=== PATIENT | male | born 1960 | race Caucasian/White ===

== ENCOUNTER 2024-01-06 04:48 | Inpatient (IN) | payer OTHER, SELFPAY ==
[2023-12-31 08:28] VITALS: BMI 32.3
[2023-12-31 09:38] LABS: % Basophils 0.8 % (0-2); % Eosinophils 8.9 % (0-6); % Immature Granulocytes 0.4 % (0-0.5); % Lymphocytes 26.1 % (20.5-51.1); % Monocytes 5.9 % (1.7-9.3); % Neutrophils 57.9 % (42.2-75.2); Absolute Basophils 0.1 10^3/uL (0-0.2); Absolute Eosinophils 0.7 10^3/uL (0-0.7); Absolute Lymphocytes 1.9 10^3/uL (1.2-3.4); Absolute Monocytes 0.4 10^3/uL (0.1-0.6); Absolute Neutrophils 4.2 10^3/uL (1.4-6.5); Hematocrit 43.7 % (39.0-52.0); Hemoglobin 14.9 g/dL (13.0-18.0); Mean Corp Hgb Conc. 34.1 g/dL (33.0-37.0); Mean Corpuscular Hgb 31.4 pg (27.0-31.0); Mean Corpuscular Volume 92.2 fL (80.0-94.0); Mean Platelet Volume 10.2 fL (7.4-10.4); Nucleated Red Blood Cells % 0 % (-); Platelet Count 224 10^3/uL (130-400); Red Blood Cell Count 4.74 10^6/uL (4.70-6.10); Red Cell Dist. Width 12.7 % (11.5-14.5); White Blood Cell Count 7.3 10^3/uL (4.8-10.8)
[2023-12-31 09:48] LABS: INR 1.09; PT 13.9 Sec (11.4-14.6)
[2023-12-31 09:48] LABS: Urine Albumin Negative (Neg - Trace); Urine Bilirubin Negative (Negative); Urine Character Clear (Clear); Urine Color Yellow; Urine Glucose Negative (Negative); Urine Ketone Negative (Negative); Urine Leukocyte Negative (Negative); Urine Nitrite Negative (Negative); Urine Occult Blood Negative (Negative); Urine Urobilinogen Negative (Neg - 1+)
[2023-12-31 09:49] LABS: APTT 29.8 Sec (23.4-35.0)
[2023-12-31 10:13] LABS: ALT (SGPT) 33 U/L (0-50); AST (SGOT) 33 U/L (17-59); Albumin 4.9 g/dl (3.5-5.0); Alkaline Phosphatase 101 U/L (38-126); Blood Urea Nitrogen 19 mg/dl (9-20); Calcium 10.5 mg/dl (8.4-10.2); Carbon Dioxide 30 mmol/L (22-30); Chloride 104 mmol/L (98-107); Direct Bilirubin 0.3 mg/dl (0.0-0.4); Estimated Creatinine Clearance 80 ml/min; Glucose 91 mg/dl (70-99); Potassium 4.9 mmol/L (3.5-5.1); Sodium 140 mmol/L (135-145); Total Bilirubin 1.4 mg/dl (0.2-1.3); Total Protein 7.6 g/dl (6.3-8.2); eGFR > 60.00
--- NOTE | 2023-12-31 10:20 | CM ---
Chart reviewed. 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 Patients 's cousin and lives up
stairs. You can also access the basement through the house with 9-10 CAMERON. Reviewed preoperative and postoperative instructions and restrictions, along with showering guidelines. Gave patient 2 soaps. Patient is agreeable to a home visit by CT
Transitional RN. Plan is for the patient to return home with CT Transitional RN.
[2023-12-31 11:02] LABS: Glycohemoglobin (HgbA1c) 5.4 % (4.0-5.6)
[2024-01-06] VITALS (21 sets, daily range): BP systolic 76–137; BP diastolic 50–98; BMI 31.9
--- NOTE | 2024-01-06 00:12 | W.PN.CT ---
Assessment / Plan
-
Assessment:
-S/P Standard sternotomy with mid arch cannulation using Seldinger technique and right atrial cannulation/Ascending aortic and hemiarch aorta replacement/Resuspension of the [place] aortic valve at the level of the commissures with debridement of
[place] aortic valve Lambl bodies/ Rigid sternal fixation using 3 plates and sternal wires, by Dr. Box on 01/06/24, pod#1
-Ascending Aorta Aneurysm (5.3 cm)
-Bicuspid aortic valve morphology, Seivers type I, left right fusion
-LVEF 60-65% per intraop AMADEO
-Chest pain
-L heart Cath showed negative CAD
-Sinus bradycardia
-HTN
-Hyperlipidemia
-Class 1 obesity (BMI 32.3)
-Bipolar disorder
-Anxiety/Depression
-Active tobacco use (< 1ppd x 30+ years)
-Renal calculi
-Sciatica
-MRSA + (nasal swab from 12/31/23)
-Hx fall from ladder with rib and left femur fx
-S/P ORIF with traction and prolonged casting, 1976
-Acute postop atelectasis
-Acute postop hypovolemia with subsequent hypervolemia
Plan:
-No major issues overnight. Hemodynamically and neurologically intact
-Successfully extubated on 01/06/24 @ 1515
-Weaned off of Levophed gtt overnight, remains on insulin gtt per protocol
-Will place Amiodarone and Lopressor on hold for now given soft BP overnight and sinus bradycardia
-Last CI, MVO2, U/O mL since OR
-Cont. current meds (ASA, Lipitor, held Amiodarone last night d/t bradycardia )
-Monitor chest tube output: 2meds , R/L pleurals
-D/C'd radha and a-line @ 0500
-D/C'd sea @ 0600
-Telemetry phase today once off insulin gtt per protocol
-Maintain cordis
-Maintain temporary PW (will pull in 1-2 days)
-Wean off of O2 as tolerated
-Encourage use of IS
-Cont. to encourage smoking cessation
-OOB into chair/Ambulate
Subjective
-
Date of Service: January 06, 2024
Objective Data
-
Lab Results
12/31/23 08:38
12/31/23 08:38
PT 13.9 Sec (11.4-14.6) 12/31/23 08:38
INR 1.09 12/31/23 08:38
APTT 29.8 Sec (23.4-35.0) 12/31/23 08:38
[2024-01-06] MEDS: BACTROBAN 2% OINTMENT 1 APPLIC NASAL ×2 (05:39→20:18)
[2024-01-06] MEDS: PROTONIX 40 MG PO (05:41)
[2024-01-06] MEDS: MAGNESIUM OXIDE 500 MG PO (05:41)
[2024-01-06] MEDS: LOPRESSOR 25 MG PO (05:41)
--- NOTE | 2024-01-06 06:15 | W.CVOR.SURPR ---
[facility] Surgeon Immed Pre Op
-
I have examined this patient prior to performance of the scheduled procedure.
The patient's condition is unchanged from the time of the dictated/written History and
Physical and the patient is able to undergo the scheduled procedure.
Ascending aorta replacement with hemiarch replacement
--- NOTE | 2024-01-06 06:20 | PTCARENOTE ---
Patient arrived to room 2263 with security system technician without difficulty. Patient A+A+Ox3. No neurological deficits noted. No c/o pain or discomfort. Patient confirmed taking 4% Chlorhexidine shower last night and this morning. Patient confirmed
NPO status after midnight. Patient clipped and prepped per protocol. Admission questions and medication reconciliation completed. Pre-Op medications administered. I.S. >3,000. Dr. Box arrived to talk with patient. callisthenics instructor to CV[facility].
[2024-01-06 07:18] LABS: ACT+ - POC 93 Seconds (82-134)
[2024-01-06 07:44] LABS: B.E. - POC -0.3 mmol/L; Glucose - POC 92 mg/dl (65-99); HCO3 - POC 26 mmol/L (21-29); Hematocrit - POC 38 % PCV (42-52); Hemodilution- POC Yes; Hemoglobin Calculated - POC 12.8; PCO2 - POC 46 mmHg (35-45); PO2 - POC 443 mmHg (80-100); POC Comment PRE; Potassium - POC 4.3 mmol/L (3.6-5.0); Sodium - POC 143 mmol/L (135-145); pH - POC 7.36 (7.35-7.45)
[2024-01-06 08:01] LABS: Urine Albumin Negative (Neg - Trace); Urine Bilirubin Negative (Negative); Urine Character Clear (Clear); Urine Color Yellow; Urine Glucose Negative (Negative); Urine Ketone Negative (Negative); Urine Leukocyte Negative (Negative); Urine Nitrite Negative (Negative); Urine Occult Blood Negative (Negative); Urine Urobilinogen Negative (Neg - 1+)
[2024-01-06 08:50] LABS: ACT+ - POC 608 Seconds (82-134)
--- NOTE | 2024-01-06 09:19 | CM ---
Addendum entered by JAYA Soliz 01/06/24 15:42:
Addl info. from initial assessment to clarify below:
Patient lives in a finished basement apartment of a 2 STH with his , full bathroom as well with 1 CAMERON from the outside, 0 DME. Patients 's cousin and lives up stairs. You can also access the basement through the house with 9-10 CAMERON.
Original Note:
Patient in OR today for planned AVR.
Reviewed pre-admission assessment. Pt. resides with spouse in a 1 bedroom apt. Functionally, patient is quite indep. w/ ADLS, mobility without use of any assisted device.
Anticipated DC plan is for home w/ CT Transitional Care RN.
CM to follow.
[2024-01-06 09:42] LABS: B.E. - POC 1.4 mmol/L; Glucose - POC 139 mg/dl (65-99); HCO3 - POC 27 mmol/L (21-29); Hematocrit - POC 31 % PCV (42-52); Hemodilution- POC Yes; Hemoglobin Calculated - POC 10.5; Ionized Calcium - POC 1.18 mmol/L (1.12-1.27); PCO2 - POC 47 mmHg (35-45); PO2 - POC 396 mmHg (80-100); POC Comment CPB; Potassium - POC 5.6 mmol/L (3.6-5.0); Sodium - POC 141 mmol/L (135-145); pH - POC 7.37 (7.35-7.45)
[2024-01-06 09:46] LABS: ACT+ - POC 540 Seconds (82-134)
[2024-01-06 10:18] LABS: B.E. - POC 0.1 mmol/L; Glucose - POC 189 mg/dl (65-99); HCO3 - POC 25 mmol/L (21-29); Hematocrit - POC 34 % PCV (42-52); Hemodilution- POC Yes; Hemoglobin Calculated - POC 11.4; Ionized Calcium - POC 1.16 mmol/L (1.12-1.27); O2 Saturation %Calculated-POC 99.8 5 (92-96); PCO2 - POC 38 mmHg (35-45); PO2 - POC 229 mmHg (80-100); POC Comment CPB; Potassium - POC 5.9 mmol/L (3.6-5.0); Sodium - POC 138 mmol/L (135-145); pH - POC 7.41 (7.35-7.45)
[2024-01-06 10:19] LABS: ACT+ - POC 486 Seconds (82-134)
[2024-01-06 10:35] LABS: ACT+ - POC 476 Seconds (82-134)
[2024-01-06 10:35] LABS: B.E. - POC 2.6 mmol/L; Glucose - POC 185 mg/dl (65-99); HCO3 - POC 27 mmol/L (21-29); Hematocrit - POC 34 % PCV (42-52); Hemodilution- POC Yes; Hemoglobin Calculated - POC 11.7; Ionized Calcium - POC 1.14 mmol/L (1.12-1.27); O2 Saturation %Calculated-POC 99.9 5 (92-96); PCO2 - POC 39 mmHg (35-45); PO2 - POC 337 mmHg (80-100); POC Comment WARM; Potassium - POC 5.5 mmol/L (3.6-5.0); Sodium - POC 139 mmol/L (135-145); pH - POC 7.45 (7.35-7.45)
[2024-01-06 11:05] LABS: ACT+ - POC 96 Seconds (82-134)
[2024-01-06 11:05] LABS: B.E. - POC -1.3 mmol/L; Glucose - POC 130 mg/dl (65-99); HCO3 - POC 25 mmol/L (21-29); Hematocrit - POC 34 % PCV (42-52); Hemodilution- POC Yes; Hemoglobin Calculated - POC 11.7; Ionized Calcium - POC 1.42 mmol/L (1.12-1.27); O2 Saturation %Calculated-POC 99.8 5 (92-96); PCO2 - POC 46 mmHg (35-45); PO2 - POC 242 mmHg (80-100); POC Comment POST; Sodium - POC 143 mmol/L (135-145); pH - POC 7.34 (7.35-7.45)
[2024-01-06] MEDS: NEURONTIN PO (11:35)
[2024-01-06] MEDS: LIPITOR PO (11:35)
--- NOTE | 2024-01-06 12:00 | PTCARENOTE ---
Received patient from [facility] at 1200. Pt intubated and sedated on precedex gtt at 0.7mcg/kg/hr. PERRLA 3mm brisk. Unresponsive. POX 98% on SIMV 60% 12 600 5/5. Occasionally breathing over the vent. Lungs clear anteriorly. Mediastinal chest tubes x2
y-sited to 1 atrium to -20cm suction draining red fluid. Right pleural chest tube to -20cm suction draining red fluid. No air leaks, tidaling, crepitus noted. Sinus jose de jesus with 1st degree AVB with sinus arrhythmia with rates in the 50s-60s. BP
supported with 2mcg/min levophed. Heart tones audible. CI 1.86, CT JEWEL BEARING TURNER notified and MVO2 drawn. PA pressures 20s/10s. CVP 12. Bilateral radial and DP pulses palpable. No edema noted. Epicardial v-wire set to back up 40/8/2. No pacing noted after
thresholds completed. Abdomen soft, round, nontender. Hypoactive BS. Edwards catheter intact draining adequate amounts of clear yellow urine. Right and left radial alines intact with appropriate waveforms. Right IJ cordis and swan floated to 49cm. All
lines flushed, leveled, and zeroed with appropriate waveforms. Left AC 18g PIV intact infusing insulin gtt per Critical Care Glycemic protocol. NSS KVO x2 infusing. See MAR for medication administration. See worklist for complete nursing assessment.
Post-op EKG, labs, and CXR completed.
--- NOTE | 2024-01-06 12:05 | W.PN.CT.SURG ---
CT Surgery Operative Note
-
CARDIAC SURGERY OPERATIVE REPORT
Preoperative Diagnosis: Ascending aortic aneurysm with history of bicuspid aortic valve morphology and recurrent chest pain
Postoperative Diagnosis: Same
Procedure(s) Performed:
1. Standard sternotomy with mid arch cannulation using Seldinger technique and right atrial cannulation
2. Ascending aortic and hemiarch aorta replacement
3. Resuspension of the [place] aortic valve at the level of the commissures with debridement of [place] aortic valve Lambl bodies
4. Placement of temporary ventricular pacing wire
5. Transesophageal echocardiography
6. Rigid sternal fixation using 3 plates and sternal wires
Date of Surgery: 01/06/2024
Comorbidities:
1. Known ascending aortic aneurysm without rupture, crescendo chest pain without coronary artery disease
2. Hypertension
3. Hyperlipidemia
4. History of bipolar disorder, depression and anxiety
5. Active smoker, tobacco abuse
6. Nephrolithiasis
7. Bicuspid aortic valve morphology, Seivers type I, left right fusion
Attending Surgeon: Barber Box MD, MS
Assistants: Janki Quintero PA-C (present and necessary to first officer, retraction, suction, exposure, suture management, and wound closure under my direction)
Anesthesiology: Chandu Romero MD and Roberta Boone CRNA
Scrub and Circulating RNs: Wanda Prasad RN, Moinka Cohen RN
Cellar Packer: Janki Crawford CCP
Anesthesia: GETA
EBL: per perfusion records
Products: None, gave back 500cc Cell Saver Blood Recovered from the field
CPB Time: 98 minutes
Aortic Cross Clamp Time: 72 minutes
Indication(s) for Procedures: This is a 63-year-old male who is well-known to me. I been following him for almost a year and a half due to a known ascending aortic aneurysm measuring 5.3 cm. He also has known bicuspid aortic valve morphology.
Initially had no family history and had some hypertension which was better controlled. He is also an active smoker which I counseled him multiple times to stop smoking. He is currently down to 3 cigarettes a day from initially 17/day. In the last
6 months, he is presented to the ED on multiple occasions with unexplained central and back chest pain. He had multiple CT angiograms demonstrating a stable ascending aortic aneurysm with no dissection. However given his crescendo symptoms, I felt
it was prudent to proceed with aortic intervention given his bicuspid valve morphology. He was counseled on the risk of surgery, he accepted those risks, and so we proceeded.
Aortic Valve Description: Bicuspid valve morphology with left and right coronary cusp fusion, slightly thickened at the free margin with some Lambl bodies on the ventricular aspect otherwise was normally functioning with a mean gradient of 9 and
trace central aortic valve insufficiency. I opted to leave this valve in place given that a bioprosthetic valve was given the same approximately gradient and may not give him the same durability/longevity. The left and right coronary ostia within
normal anatomic positions. He had a [place] type I morphology with a 180/180/180 distribution of the commissures.
Findings: Left ventricular ejection fraction preoperatively was normal with no regional wall motion abnormalities. Following surgery his EF remained the same at 60% with no new regional wall motion abnormalities. He had a bicuspid aortic valve
with left right fusion, [place] 1 morphology. There was some thickening along the free margin of the leaflet however due to its normal function and very mild mean gradient of 9 mmHg, I opted to leave the valve alone. There was some Lambl bodies on
the ventricular aspect of the valve which I resected using scissors. The ascending aorta and arch were circumferentially dissected. I was able to isolate the innominate artery as well as cannulate at the mid arch using Seldinger technique under
echo guidance. This allowed me to place my clamp across the base the innominate artery. 3 pairs of pledgeted sutures were placed along the commissures of the [place] aortic valve leaflets. The graft was then inverted inside of the heart and a
single 4-0 Prolene was used to perform the proximal anastomosis using bovine pericardium as a gasket and absorbable PrevaLeak to seal any needle holes. The graft was then pulled back out and the rest of the ascending aorta was resected accordingly
beveling toward the less curve aiming for the ligamentum arteriosum remnant. The graft was beveled to the lesser curvature as well. The graft was beveled according and the distal anastomosis was performed using 4-0 Prolene in a running fashion
using again, bovine pericardium, as a gasket on the external surface. A single repair stitch was placed along the 5 o'clock position of the distal anastomosis. There was otherwise good hemostasis and normal function of his [place] aortic valve.
Given his line of work and activity, I opted to perform rigid sternal fixation using 3 additional plates to reinforce the wires. No inotropes were required in the case, no blood products other than 500 cc of scavenged blood wash to the Cell Saver,
was given back to the patient. He was in sinus rhythm and did not require any ventricular pacing. His [place] aortic valve remained with only trace central insufficiency.
Specimen(s): Ascending aortic aneurysm.
Prosthesis:
1. 32 mm Hemashield [place] graft
2. Bovine pericardium, serial number [id number]
3. 3 box plates, 2 silver and 1 gold (4 x 18 mm screws, 4 x 20 mm screws, 4 x 16 mm screws)
Description of Procedure: The patient was taken to the operating room. Their identity and procedure to be performed were verified and they were positioned supine on the operating table. Induction via general anesthesia with endotracheal intubation
was performed and central venous access and arterial monitoring were inserted. A preoperative transesophageal echocardiogram was performed to assess cardiac function and valvular function. The patient was then prepped and draped from chin to feet in
a sterile fashion. A preoperative time-out was performed with all members of the team present. A midline chest incision was performed along with median sternotomy. The innominate vein was isolated and encircled with a vessel loop for retraction.
The left innominate artery was then identified and circumferentially dissected placing a vessel loop and the events narrowing would be required. I then opened the pericardium and full heparinization was given (a total of 55,000 units). We created a
pericardial well. The pericardial reflection off the ascending aorta was then taken down. The ascending aorta was then gently retracted towards the feet and additional dissection along the arch was performed. At this point were able to identify
the left common carotid as well as the left subclavian. I opted to perform mid arch cannulation using Seldinger technique in order to provide room for the aortic cross-clamp. The aortic cannulation site was chosen where it was soft, pliable, and
free of calcium. Cannulation was performed with an arterial cannula under echo guidance using Seldinger technique after performing serial dilations. A triple-stage venous cannula through the right atrial appendage. The arterial cannula line had an
appropriate bounce and correlating pressures with test dosing. The pulmonary artery was away from the aorta to facilitate a clamp site and aortotomy. The ACT was confirmed to be over 400 and retrograde autologous priming was performed
before commencing cardiopulmonary bypass. A left ventricular vent was placed at the right superior pulmonary vein and secured. While pulling down on the ascending aorta exposing the arch, the aortic cross-clamp was placed across the base of the
innominate artery after decreasing the flow on the bypass and mean arterial pressure. I was satisfied that we clamped high enough in order to resect the abnormal aorta up to the level where the necked down a 12-gauge Angiocath was then inserted
into the ascending aorta and A total of 1.2L initial dose of antegrade [place] cardioplegia solution was given and planned for re-dosing every 75 minutes as necessary. There was rapid electro-mechanical arrest of the heart at 300 cc of
cardioplegia. The left ventricle was observed for distention on echocardiogram and manual palpation. Cold slush was placed into a sponge and topically on the RV while we systemically cooled to 34 degrees centigrade.
Carbon dioxide was used to flood the field. An aortotomy was performed and the distal ascending aorta was tucked away. The location of both left and right coronary vessels were visualized in the root. The aorta was fully transected at the level of
the STJ. I then continued to cut down further toward the commissures of the leaflets. Lambl bodies were resected from the ventricular aspect. I placed 4-0 pledgeted Prolene sutures at the level of the commissures and both the internal and external
aspects of the root. This was used to resuspend the aortic valve. Using a freestyle sizer, I sized the [place] root to approximately 32 mm. A 32 mm Hemashield graft was then selected and transected according to length. I then inverted the graft
and placed it inside of the LVOT/left ventricle. Using the pledgeted Prolene sutures already placed at the commissures, I circumferentially sewed a single suture line using bovine pericardium as a gasket on the external surface. Additional
absorbable sealant was then placed along the external surface after everting the graft. The ascending aorta was then resected leaving approximately 1.5 cm from the cross-clamp where the [place] aorta neck down to approximately 3.5cm. The graft was
beveled accordingly and the distal anastomosis was performed with a running 4-0 Prolene in a single layer using bovine pericardium as a gasket.
De-airing maneuvers were performed and temporary bipolar ventricular pacing wires were placed on the base of the right ventricle and temporary atrial pacing wires at the SVC/Atrial junction. Eye cautery was used to perform a small hole in the graft
at 12-gauge Angiocath was then replaced into the graft for de-airing after being hooked up to the root vent. The patient was placed in a Trendelenburg position and flows on bypass were lowered. The aortic cross clamp was removed and flows were
slowly brought back up. The suture lines appeared hemostatic. Transesophageal echocardiography revealed no AI and appropriate prosthetic function. Once de-airing was satisfactory, the left ventricular vent was removed. After verifying acceptable
parameters, we initiated weaning from cardiopulmonary bypass. Once we were off cardiopulmonary bypass, the venous cannula was clamped and removed. A test dose of protamine was administered and the patient was monitored for any adverse reaction
before resuming protamine. Once half of the protamine dose was delivered, pump suckers were turned off and the systolic blood pressure was lowered for aortic decannulation. The aortic cannula was removed and pursestrings were tied down. All
cannulation sites were oversewn with a 4-0 prolene. The suture lines were inspected and hemostasis was confirmed. Mediastinal hemostasis was obtained. Two 24Fr Forrest drains were placed within the pericardium with a single 19 [place] drain to
the right hemithorax. The sternum was approximated with four #7 and three #8 double stainless steel wires. Additional sternal plates were placed to reinforce the manubrium, body, and lower sternum. Fascia was approximated with #1 vicryl suture. The
subcutaneous, dermis and epidermis were closed in layers in a running fashion. The skin wound was cleansed and dressed.
All instrument, sponge, and needle counts were confirmed to be correct x 2 at the end of the operation. The patient was transferred to the cardiac intensive care unit in critical but stable condition.
I, Dr. Barber Box, was present, scrubbed for, and performed all critical elements of this procedure.
Barber Box MD, MS
Cardiothoracic Surgeon
[facility]
This dictation was created using the [employer]ote dictation system. Please excuse any grammatical, typographical, or 'sound alike' errors
[2024-01-06 12:16] LABS: Glucose - Point of Care 140 mg/dl (70-99)
[2024-01-06 12:25] LABS: B.E. -1.6 mmol/L; HCO3 25.6 mmol/L (21-28); Ionized Calcium 1.27 mMOL/L (1.15-1.33); O2 Saturation % 99.6 % (94-98); O2 Therapy VENT; PCO2 52 mmHg (35-48); PO2 162 mmHg (83-108); Potassium 3.8 mMOL/L (3.5-5.1); Sodium 138 mMOL/L (136-145)
[2024-01-06 12:27] LABS: Hematocrit 40.2 % (39.0-52.0); Hemoglobin 13.6 g/dL (13.0-18.0); Platelet Count 162 10^3/uL (130-400)
[2024-01-06 12:28] LABS: Mixed Venous O2 Saturation 79.7 %
--- NOTE | 2024-01-06 12:35 | PTCARENOTE ---
Per CT ETL ANALYST, advance ETT 2cm and change vent settings to 16 RR. RT called to bedside, ETT advanced from 22cm to 24cm and vent changes made. During repeat CXR, pt woke up, was able to follow commands appropriately and wiggle toes and squeeze hands.
[2024-01-06 12:36] LABS: INR 1.38
[2024-01-06 12:39] LABS: Blood Urea Nitrogen 18 mg/dl (9-20); Estimated Creatinine Clearance 87 ml/min; Glucose 136 mg/dl (70-99); Magnesium 2.5 mg/dl (1.6-2.3)
[2024-01-06] MEDS: KCL 50 IV ×2 (12:41→13:58)
[2024-01-06] MEDS: ANCEF 10 IV ×2 (12:43)
[2024-01-06] MEDS: NSS 500 IV (12:43)
[2024-01-06] MEDS: DILAUDID 0.5 MG IV (12:48)
--- NOTE | 2024-01-06 12:51 | CON.CAR ---
Addendum entered and electronically signed by Edy Alatorre MD 01/06/24 15:05:
Total visit time 20 minutes
Addendum entered and electronically signed by Edy Alatorre MD 01/06/24 14:32:
I saw and examined the patient.
The GAS LEAK TESTER or PA's note was reviewed and I agree with the note.
Comment: General: Sedate
Neck: Supple, no JVD, HJR, carotids +2 B/L, no bruits bilaterally.
Heart: Non displaced PMI, RRR, no murmurs, No S3, S4, no rubs.
Lungs: Scattered rhonchi
Sternal dressings noted
Extremities: No clubbing, cyanosis or edema bilaterally.
Neuro: Sedate
Jeffrey has a history of bicuspid aortic valve with mild aortic stenosis and ascending thoracic aneurysm as well as tobacco abuse and hyperlipidemia. He is seen status post #32 hemiarch ascending aortic root replacement with resuspension of aortic
valve. He is sedate at present and on low-dose Levophed. Remains in sinus rhythm. Discussed with nursing.
Original Note:
Consultation
Consultation Request
Date/Time Consultation Requested: 01/06/2024
Date/Time Consultation Performed: 01/06/2024
Requesting Provider: Dr. Box
Performing Provider: Ying Dorsey PA-C for Edy Alatorre
Reason for Consultation: s/p hemiarch ascending replacement w/ resuspension of the AV, post op care
Medical History
-
History of Present Illness:
Patient is a 63-year-old male with past medical history of ascending aortic aneurysm measuring 5.3 cm and bicuspid aortic valve, hyperlipidemia, chronic back pain, kidney stones, tobacco abuse who had been admitted to outside hospital on multiple
occasions with unexplained chest and back pain. Multiple CT angiograms demonstrated stable ascending aortic aneurysm without dissection.. Echocardiogram showed preserved ejection fraction with bicuspid aortic valve with mild aortic stenosis. He
underwent cardiac catheterization in November 2023 which demonstrated no significant coronary artery disease He was seen by cardiothoracic surgery as outpatient and felt to be suitable candidate for ascending aorta replacement with resuspension of
aortic valve. Patient was electively admitted 01/06/2024 and underwent number #32 hemiarch ascending aorta replacement with resuspension of aortic valve and rigid sternal fixation using 3 plates and sternal wires by Dr. Box. Cardiology being asked
to see patient for postop care.
PMH:
Aneurysm dilation Thoracic Aorta
Tobacco abuse/smoker, 30+years, < 1PPD
Mechanical fall off ladder, nondisplaced rib fractures and traumatic fx L femur requiring ORIF
Hyperlipidemia
Chronic low back pain, sciatica
Nephrolithiasis�����
Depression/anxiety
Past Medical History
Past Medical History: Other (See HPI)
Past Surgical History: Orthopedic (traumatic fx L femur requiring ORIF)
Social History
Tobacco: Smoker
Alcohol: Occasional
Drug: None
Personal:
Living: With Family
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
Family History
Family History: Cancer and Other (Mother CVA, Father colon ca, ESRD-HD)
Allergies / Home Medications
Allergy/AdvReac Type Severity Reaction Status Date / Time
codeine Allergy GI Verified 12/24/23 10:58
cyclobenzaprine Allergy Nausea / Verified 01/06/24 03:26
[From Flexeril] Vomiting
�Medication �Instructions �Recorded �Confirmed �Type
acetaminophen 500 mg capsule 500 - 1,000 mg PO Q6H PRN pain 12/24/23 01/06/24 History
atorvastatin 20 mg tablet 20 mg PO DAILY 12/24/23 01/06/24 History
lamotrigine 150 mg tablet 150 mg PO DAILY 12/24/23 01/06/24 History
metoprolol succinate 25 mg 25 mg PO DAILY 12/24/23 01/06/24 History
tablet,extended release 24 hr
otidroraldsp-dlpwimlr-jooypg 1 tab PO DAILY 12/24/23 01/06/24 History
tablet (Multivitamin 50 Plus
tablet)
Review of Systems
-
Unable to obtain full review of systems at this time due to: Patient Intubation
Physical Exam
Vital Signs
Temp Pulse Resp BP Pulse Ox
97.0 F 63 12 107/61 98
01/06/24 12:00 01/06/24 12:10 01/06/24 12:10 01/06/24 12:00 01/06/24 12:15
GEN: Intubated and sedated; Denita hugger in place
HEENT: supple, anicteric, mmm
LUNGS: CTA bilaterally, no wheezes/rales; intubated
CV: Reg, S1/S2, no murmur, rub or gallop
Chest: Sternotomy stable with indwelling chest tubes
ABD: soft, BS+, NT/ND
EXT: No edema, clubbing or cyanosis
NEURO: Unable to assess as intubated and sedated
SKIN: No rash, warm, dry, pink
Lab Results
01/06/24 12:02
Impression / Plan
-
PCP:Tiffany Horn
Cardiology: Dr. Navya Aguirre
Impression:
Presented for elective repair of Ascending thoracic aortic aneurysm
S/p #32 hemiarch ascending replacement with resuspension of the AV and Rigid sternal fixation using 3 plates and sternal wires on 01/06/2024 Dr. Box
Bicuspid AV w/ mild
Tobacco abuse/smoker, 30+years, < 1PPD
Mechanical fall off ladder, nondisplaced rib fractures and traumatic fx L femur requiring ORIF
Hyperlipidemia
Chronic low back pain, sciatica
Nephrolithiasis�����
Depression/anxiety
Echo 11/29/2023 ([facility]): EF 55% with normal regional wall motion. Mildly dilated RA, mild peak/mean 18/10 mmHg
Cardiac catheterization 12/04/2023 ([facility]): No significant coronary artery disease
Carotid duplex 11/29/2023: No significant hemodynamic stenosis
Plan:
-Presents 01/06/2024 for elective replacement of ascending aortic aneurysm
-S/p #32 hemiarch ascending replacement with resuspension of the AV and Rigid sternal fixation using 3 plates and sternal wires on 01/06/2024 Dr. Box
-Patient seen and examined postoperatively. Remains intubated and sedated
-Does follow simple commands with lightening of sedation
-Wean sedation with hopes of extubating later this afternoon
-Currently on 1 mcg/min of Levophed, wean as tolerated
-Post op ECG stable in sinus rhythm with 1st AVB. Tele reviewed showing sinus rhythm with sinus arrhythmia
-Post op Hgb stable at 13.6, repeat pending
-Cardiology will follow
HPI 01/06/2024:
Patient is a 63-year-old male with past medical history of ascending aortic aneurysm measuring 5.3 cm and bicuspid aortic valve, hyperlipidemia, chronic back pain, kidney stones, tobacco abuse who had been admitted to outside hospital on multiple
occasions with unexplained chest and back pain. Multiple CT angiograms demonstrated stable ascending aortic aneurysm without dissection.. Echocardiogram showed preserved ejection fraction with bicuspid aortic valve with mild aortic stenosis. He
underwent cardiac catheterization in November 2023 which demonstrated no significant coronary artery disease He was seen by cardiothoracic surgery as outpatient and felt to be suitable candidate for ascending aorta replacement with resuspension of
aortic valve. Patient was electively admitted 01/06/2024 and underwent number #32 hemiarch ascending aorta replacement with resuspension of aortic valve and rigid sternal fixation using 3 plates and sternal wires by Dr. Box. Cardiology being asked
to see patient for postop care.
Data Reviewed
-
EKG: Report Reviewed by me, Discussed with Physician and Discussed with Nurse
Radiology: Report Reviewed by me, Discussed with Physician and Discussed with Nurse
Labs: Labs Reviewed by me, Discussed with Physician and Discussed with Nurse
Old Records: Reviewed
--- NOTE | 2024-01-06 12:52 | W.PN.UPDATE ---
Update Note
Progress Note Update
Jeffrey Diallo is a 63 year old male electively admitted 01/05 for an ascending aorta replacement due to a 5.2 cm ascending aortic aneurysm
IV fluids: 1500
U.O.:� 600
Blood:� none
Wires:� V-wires
Inotropes:� none
Pressors:� Levophed @ 2
Sedatives:� Precedex @ 0.7
�
NEURO: sedated on Precedex, pupils +2mm B/L
RESP: #8OT @23cm> 500/60%/14/5. Lungs clear B/L. 2 mediastinal (10cc on arrival) and R pleural (0cc on arrival) chest tubes to -20cm suction. Sanguineous drainage
CV: RRR +S1, S2, no S3, no�rub, no murmur. Aquacel to upper sternotomy (to protect incision from patient gutierrez) and Dermabond to median sternotomy. RIJ w/Alberta locked @ 49cm. PA 31/16; CVP 13; C.O 4.24/CI 1.86; MVO2 79.7%
ABD: round, soft, no BS
EXT: no edema, +2/4 DP pulses B/L, no femoral bruit, B/L radial A-line intact
: Edwards with clear yellow urine
�
A/P: POD #0 s/p Ascending aortic and hemiarch replacement #32 mm Hemashield red cliff graft
AMADEO: EF�60-65%. Bicuspid aortic valve with fused R/L coronary cusps, trace AI, trace MR, mild TR
- wean and extubate
- will need instruction regarding antibiotic prophylaxis for dental and invasive procedures
- will need pre-discharge TTE
- wean Levophed to maintain SBP<110mmHg
# MRSA + nasal screen
- Vanco + Ancef dillon-op
�
# acute surgical blood loss anemia-expected
- trend CBC
�
# Bipolar depression
- continue Lamotrigine
�
# Hyperlipidemia
- resume�Lipitor
--- NOTE | 2024-01-06 13:01 | CON.INTV ---
Consultation
Consultation Request
Date/Time Consultation Requested: 01/05
Date/Time Consultation Performed: 01/05
Reason for Consultation: Critical care
Medical History
-
History of Present Illness:
History obtained from the chart as patient is currently intubated and sedated. 63-year-old male with history of ascending aortic aneurysm, with increasing size and development of chest pain. Patient had a cardiac workup which was negative.
Patient was noted to have enlarging aortic aneurysm 5.3 cm. Due to persistent symptoms, patient underwent ascending aorta replacement 01/06/2024. We are asked to help from critical care standpoint. Of note, AMADEO with normal biventricular function,
bicuspid aortic valve. Norepinephrine continues, being weaned
Patient now awake, on CPAP wean. Chest tube output minimal
.
PMH: History of left femur fracture requiring ORIF 1976, chronic back pain, nephrolithiasis, bipolar disorder, hyperlipidemia, hypertension. Patient with history of thoracic aortic aneurysm 5.3 cm
Past Medical History
Past Medical History: None (See above)
Past Surgical History: None (See above)
Social History
Tobacco: Smoker (Continues to smoke, likely has 30 pack history.)
Alcohol: Occasional
Drug: None
Personal:
Living: With Family
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
Family History
Family History: Other (Father age 88, history of colon cancer. Mother age 74, stroke. 5 brothers, 1 sister. Family history negative. No children)
Allergies / Home Medications
Allergies
Allergy/AdvReac Type Severity Reaction Status Date / Time
codeine Allergy GI Verified 12/24/23 10:58
cyclobenzaprine Allergy Nausea / Verified 01/06/24 03:26
[From Flexeril] Vomiting
Home Medications
�Medication �Instructions �Recorded �Confirmed �Last Taken �Type
acetaminophen 500 mg capsule 500 - 1,000 mg PO Q6H PRN pain 12/24/23 01/06/24 12/13/23 09:00 History
1000 mg
atorvastatin 20 mg tablet 20 mg PO DAILY 12/24/23 01/06/24 01/05/24 08:00 History
20 mg
lamotrigine 150 mg tablet 150 mg PO DAILY 12/24/23 01/06/24 01/05/24 08:00 History
150 mg
metoprolol succinate 25 mg 25 mg PO DAILY 12/24/23 01/06/24 01/05/24 08:00 History
tablet,extended release 24 hr 25 mg
iyqxetifjzpe-xwgqnupw-hqkluv 1 tab PO DAILY 12/24/23 01/06/24 12/29/23 09:00 History
tablet (Multivitamin 50 Plus 1 Tab
tablet)
Review of Systems
-
Unable to Obtain full review of systems at this time due to: Patient Intubation
Vitals / Labs / Diagnostic Testing
Vital Signs
Temp Pulse Resp BP Pulse Ox
97.0 F 63 12 107/61 96
01/06/24 12:00 01/06/24 12:10 01/06/24 12:10 01/06/24 12:00 01/06/24 12:35
Lab Data
01/06/24 12:02
Laboratory Results
01/06/24
12:02
PT 17.0 H
INR 1.38
APTT 30.0
pH 7.30 L
pCO2 52 H
pO2 162 H
HCO3 25.6
O2 Delivery Level Vent
Diagnostic Testing:
Physical Exam
-
HEENT: Normocephalic and Other (Bilateral upper extremity A-line in place)
Cardiovascular: S1/S2, Regular Rhythm, Murmur (n), Rub (n) and Peripheral Edema (n)
Respiratory: Wheeze (n), Rales (n), Rhonchi (n) and Non-Labored Respirations
GI: Soft and Non Distended
Neurology: Awake and Other (Moving extremities)
Skin: Good Color
Assessment
-
History obtained from the chart as patient is currently intubated and sedated. 63-year-old male with history of 5.3 cm ascending aortic aneurysm, with persistent chest pain, negative workup. Patient is now status post elective repair, hemiarch
ascending replacement with resuspension of aortic valve. We are asked to help from critical care standpoint
Status post repair of ascending thoracic aortic aneurysm, 5.3 cm
Hemiarch ascending replacement with resuspension of aortic valve
Bicuspid aortic valve with mild
Conditions present prior to admission
Hyperlipidemia
Chronic back pain
History of nephrolithiasis
History of fall with left femur fracture, ORIF 1970s ongoing tobacco use, [id number]
Plan/recommendations
At this time, patient appears to be comfortable. He is waking up, following commands, currently on CPAP
Adequate oxygenation, ventilation
Postoperative chest x-ray with adequate appearing lungs. ET tube a bit high
Postoperative hemoglobin stable
Postoperative EKG without acute findings, first-degree AV block noted
Moving forward
Continue with weaning per CT surgery protocol
Blood pressure control, presently systolic pressure in the 90s.
Pressors as needed, being weaned
Bilateral upper extremity A-line's in place, adequate blood pressure
Patient moving all 4 extremities
Follow-up blood sugars, insulin protocol
Antibiotic per protocol
Patient with significant smoking history. No prior CT imaging per my review
Patient would qualify and benefit from lung cancer screening
Patient would benefit from smoking cessation. This will be an ongoing discussion
Reviewed with critical care nursing
TCCT 31 min
[2024-01-06 13:03] LABS: Glucose - Point of Care 150 mg/dl (70-99)
--- NOTE | 2024-01-06 13:17 | RESPNOTE ---
ETT advanced from about 22 @ lips to 24 @ lips. RR increased to 16, Fio2 decreased to 40%.
[2024-01-06 13:29] LABS: B.E. -2.4 mmol/L; HCO3 23.7 mmol/L (21-28); O2 Saturation % 97.6 % (94-98); PCO2 45 mmHg (35-48); PO2 94 mmHg (83-108); pH 7.33 (7.35-7.45)
[2024-01-06 13:32] LABS: Mixed Venous O2 Saturation 70.6 %
[2024-01-06] MEDS: TYLENOL PO (13:36)
[2024-01-06 14:03] LABS: Glucose - Point of Care 135 mg/dl (70-99)
--- NOTE | 2024-01-06 14:15 | PTCARENOTE ---
Pt awakens, follows commands, and is consistently breathing over the vent. RT notified and placed on cpap trial. Pt tolerating. POX 98%.
[2024-01-06 14:56] LABS: HCO3 23.7 mmol/L (21-28); Ionized Calcium 1.19 mMOL/L (1.15-1.33); O2 Saturation % 99.3 % (94-98); PCO2 43 mmHg (35-48); PO2 113 mmHg (83-108); Potassium 4.6 mMOL/L (3.5-5.1); pH 7.35 (7.35-7.45)
[2024-01-06 15:03] LABS: Glucose - Point of Care 105 mg/dl (70-99)
--- NOTE | 2024-01-06 15:15 | PTCARENOTE ---
Cpap ABG within extubation criteria. RT at bedside to extubate patient to 6L NC. pOX 98%. Pt tolerated. IS completed 1250mL achieved.
[2024-01-06] MEDS: PACERONE PO (15:34)
[2024-01-06] MEDS: OFIRMEV 100 IV (15:44)
[2024-01-06] MEDS: LR 250 IV (15:46)
[2024-01-06 15:53] LABS: Glucose - Point of Care 101 mg/dl (70-99)
--- NOTE | 2024-01-06 16:00 | PTCARENOTE ---
Pt reassessed. Pt drowsy but oriented x4. Rates sternal pain 03/10-see MAR. SB-SR with 1st degree AVB on tele with rates 50s-60s. BP supported with levophed at 4mcg/min. POX 98% on 6L NC. CT output WNL. Surgical sites stable. Edwards draining adequate
amounts of clear yellow urine. Pt resting in bed. Pt's updated after ETT removal.
[2024-01-06 16:08] LABS: Hematocrit 41.2 % (39.0-52.0); Hemoglobin 14.1 g/dL (13.0-18.0); Platelet Count 199 10^3/uL (130-400)
[2024-01-06] MEDS: NEURONTIN 100 MG PO ×2 (16:19→21:08)
[2024-01-06 17:00] LABS: Glucose - Point of Care 111 mg/dl (70-99)
--- NOTE | 2024-01-06 17:00 | CM ---
Call from Thuy at [facility]. She is this patient's outpt CM. If she can assist with any discharge planning needs she can be reached at [phone]. Update to CM.
[2024-01-06] MEDS: ANCEF 5 IV (18:02)
[2024-01-06] MEDS: ROXICODONE 5 MG PO (18:05)
[2024-01-06 19:04] LABS: Glucose - Point of Care 109 mg/dl (70-99)
--- NOTE | 2024-01-06 19:30 | PTCARENOTE ---
assumed care of patient @ 1900. Received pt laying in bed, Aox3. Drowsy postop, responds to verbal commands, DAVILA. Afebrile. moderate c/o pain 4/10 in sternum. Severe b/l hand tremors, states is baseline. Sinus bradycardia with sinus arrhythmia on
monitor. HR between 44-60, Pressure 100s/50s however drops 10-15 points systolically when jose de jesus. PAP 20s/10s, CVP roughly 10. V wire set to backup 40,8,2. Lungs are clear, diminished in the bases, IS ~ 1000. R pleural and Mediastinal x2 chest tubes
to wall suction with serosang drainage. No air leak, tidaling or crepitus noted. Belly soft, nontender. tolerating ice chips and sips of water no nausea. Edwards present draining clear maximiliano urine. Top half aquacel present on sternotomy, bottom half
closed with glue, CDI. L and R arterial lines, R IJ cordis with swan floated to 49 all central lines zeroed, flushed. L AC 18 PIV patent. Received with levo at 6 , insulin per protocol. bed low and locked, call gutierrez within reach .
[2024-01-06] MEDS: CALCIUM CHLORIDE 10% SYRINGE 60 MG IV (20:16)
[2024-01-06] MEDS: SODIUM BICARBONATE 50 MEQ IV (20:18)
[2024-01-06] MEDS: SENOKOT-S 1 TABLET PO (20:19)
[2024-01-06] MEDS: LEVOPHED 250 IV (20:19)
[2024-01-06] MEDS: VANCOCIN 200 IV (20:19)
--- NOTE | 2024-01-06 21:00 | PTCARENOTE ---
swan giving erroneous readings - Indexes between 1.0 and 2.0. CTPA updated. Bicarb and Calcium given to help augment BP, levo titrated down to 2 from 6 .
[2024-01-06] MEDS: TYLENOL 1000 MG PO (21:07)
[2024-01-06 21:14] LABS: Glucose - Point of Care 132 mg/dl (70-99)
[2024-01-06 23:00] LABS: Glucose - Point of Care 96 mg/dl (70-99)
--- NOTE | 2024-01-06 23:00 | PTCARENOTE ---
levo titrated off, BP stable systolically 90s-100s. pt resting comfortably with no complaints, no change in assessment .
[2024-01-07] VITALS (31 sets, daily range): BP systolic 75–163; BP diastolic 51–145; PULSE 65; O2SAT 95–96; BMI 31.1
[2024-01-07] MEDS: ANCEF 5 IV ×2 (02:04→12:13)
[2024-01-07 02:07] LABS: Glucose - Point of Care 102 mg/dl (70-99)
[2024-01-07 03:35] LABS: Hematocrit 38.4 % (39.0-52.0); Hemoglobin 12.9 g/dL (13.0-18.0); Mean Corp Hgb Conc. 33.6 g/dL (33.0-37.0); Mean Corpuscular Hgb 31.5 pg (27.0-31.0); Mean Corpuscular Volume 93.9 fL (80.0-94.0); Mean Platelet Volume 10.3 fL (7.4-10.4); Mixed Venous O2 Saturation 63.2 %; Platelet Count 173 10^3/uL (130-400); Red Blood Cell Count 4.09 10^6/uL (4.70-6.10); Red Cell Dist. Width 12.7 % (11.5-14.5); White Blood Cell Count 23.1 10^3/uL (4.8-10.8)
[2024-01-07 04:00] LABS: Blood Urea Nitrogen 28 mg/dl (9-20); Calcium 9.7 mg/dl (8.4-10.2); Carbon Dioxide 26 mmol/L (22-30); Chloride 107 mmol/L (98-107); Estimated Creatinine Clearance 87 ml/min; Glucose 99 mg/dl (70-99); Magnesium 2.4 mg/dl (1.6-2.3); Potassium 4.3 mmol/L (3.5-5.1); Sodium 141 mmol/L (135-145); eGFR > 60.00
--- NOTE | 2024-01-07 04:00 | PTCARENOTE ---
lab work drawn and sent , EKG completed, CTPA ED Jamir notified of STEMI alert at 0400.
--- NOTE | 2024-01-07 04:04 | W.PN.CT ---
Today's Communication / Plan
-
Plan:
-No major issues overnight. Hemodynamically and neurologically intact
-Successfully extubated on 01/06/24 @ 1515
-Weaned off of Levophed gtt overnight, remains on insulin gtt per protocol
-Will place Amiodarone and Lopressor on hold for now given soft BP overnight and sinus bradycardia
-Last CI 2.47, MVO2 63.2%, U/O 1660 mL since OR
-EKG this AM with global ST-elevation c/w acute pericarditis (+rub), will administer Toradol x 3 doses, cr 1.1
-Cont. current meds (ASA, Lipitor, held Amiodarone last night d/t bradycardia )
-Monitor chest tube output: 2meds 155/315, R pleural 60/125
-D/C'd swan and a-line this AM @ 0430
-D/C'd osei @ 0600
-Telemetry phase today once off insulin gtt per protocol
-Maintain cordis
-Maintain temporary PW (will pull in 1-2 days)
-Wean off of O2 as tolerated
-Encourage use of IS
-Cont. to encourage smoking cessation
-OOB into chair/Ambulate
Assessment / Plan
-
Assessment:
-S/P Standard sternotomy with mid arch cannulation using Seldinger technique and right atrial cannulation/Ascending aortic and hemiarch aorta replacement/Resuspension of the [place] aortic valve at the level of the commissures with debridement of
[place] aortic valve Lambl bodies/ Rigid sternal fixation using 3 plates and sternal wires, by Dr. Box on 01/06/24, pod#1
-Ascending Aorta Aneurysm (5.3 cm)
-Bicuspid aortic valve morphology, Seivers type I, left right fusion
-LVEF 60-65% per intraop AMADEO
-Chest pain
-L heart Cath showed negative CAD
-Sinus bradycardia
-HTN
-Hyperlipidemia
-Class 1 obesity (BMI 32.3)
-Bipolar disorder
-Anxiety/Depression
-Active tobacco use (< 1ppd x 30+ years)
-Renal calculi
-Sciatica
-MRSA + (nasal swab from 12/31/23)
-Hx fall from ladder with rib and left femur fx
-S/P ORIF with traction and prolonged casting, 1976
-Acute postop blood loss/Anemia (stable without blood transfusion)
-Acute postop atelectasis
-Acute postop hypovolemia with subsequent hypervolemia
-Acute postop pericarditis (+rub)
Discussed patient care with: Cardiology, Nursing, Respiratory Therapy, Pharmacy and Care Team
Subjective
Procedure
S/P Standard sternotomy with mid arch cannulation using Seldinger technique and right atrial cannulation/Ascending aortic and hemiarch aorta replacement/Resuspension of the [place] aortic valve at the level of the commissures with debridement of
k[place] aortic valve Lambl bodies/ Rigid sternal fixation using 3 plates and sternal wires, by Dr. Box on 01/06/24
-
Date of Service: January 07, 2024
Pt c/o incisional pain, otherwise feels well. EKG c/w acute pericarditis, will administer Toradol x 3 doses
Objective Data
-
Lab Results
01/07/24 03:24
01/07/24 03:24
PT 17.0 Sec (11.4-14.6) H 01/06/24 12:02
INR 1.38 01/06/24 12:02
APTT 30.0 Sec (23.4-35.0) 01/06/24 12:02
Vital Signs
Vital Signs
Temp Pulse Resp BP Pulse Ox
97.8 F 59 21 94/61 95
01/07/24 03:00 01/07/24 03:30 01/07/24 03:30 01/07/24 03:00 01/07/24 03:30
CT Intake/Output/Weight
01/06/24 01/06/24 01/07/24
06:59 18:59 06:59
Intake Total 824.5 / 1108.7 284.2 / 1108.7
Output Total 1515 / 1999 485 / 2000
Balance -690.5 / -891.3 -200.8 / -891.3
SaO2: 95 (2L)
Physical Exam
-
General: Awake, Oriented and AOx3
Cardiovascular: Regular rate & rhythm, No Murmurs and Rub (acute pericarditis )
Respiratory: Clear and Decreased Breath Sounds (at bases, otherwise clear)
Sternum: Stable
Incision: Clean, Dry, Intact and Dressing Intact
Extremities: No Edema
Data Reviewed
-
Lab Results: Results Reviewed
Medications: Active Meds Reviewed
Chest X-Ray: Report Reviewed and Image Reviewed
ECG: Report Reviewed and Image Reviewed
[2024-01-07 04:16] LABS: Glucose - Point of Care 102 mg/dl (70-99)
[2024-01-07] MEDS: TORADOL 15 MG IV (05:58)
[2024-01-07] MEDS: TYLENOL 1000 MG PO ×3 (05:58→19:56)
[2024-01-07 06:14] LABS: Glucose - Point of Care 98 mg/dl (70-99)
--- NOTE | 2024-01-07 06:57 | PTCARENOTE ---
B/L A-lines and swan removed per order without incident. New dressings applied. Edwards removed per order. Pt stood to scale and to chair, +dizzyness and hypotension SBP 70s-80s. Recovered to 90s after sitting in chair with feet up. CTPA notified.
--- NOTE | 2024-01-07 07:51 | W.PN.ANS.POP ---
Anesthesia Post Operative
- Anesthesia Post Op Note
Vital Signs Stable-See Nursing Note: Yes
Airway Patent: Yes
Adequate Pain Control: Yes
Change in Mental Status: No
Current Postoperative Nausea & Vomiting: No
Anesthesia Complications: No
General Anesthetic Recall: No
Unplanned Admission: No
Post Op Hydration Adequate: Yes
--- NOTE | 2024-01-07 08:00 | PTCARENOTE ---
resumed care of patient from previous RN. Pt oob in chair at time of assessment. AAOx3. Drowsy. easily arousable. VSS. on insulin per glycemic protocol. hand tremors noted and reported to be baseline per patient. Sinus bradycardia on monitor. HR
50s. V wire set to backup 40,8,2. Lungs are clear, diminished in the bases, IS-1250. R pleural and Mediastinal x2 chest tubes to wall suction with serosang drainage. order to d/c pleural ct this am. no nausea and tolerated clear liquid tray. due to
void. aquacell c/d/i over sternotomy. R IJ cordis and L AC PIV patent. will continue ot monitor.
[2024-01-07 08:25] LABS: Glucose - Point of Care 107 mg/dl (70-99)
[2024-01-07] MEDS: LOW STRENGTH ASPIRIN 81 MG PO (08:30)
[2024-01-07] MEDS: VITAMIN C 500 MG PO (08:30)
[2024-01-07] MEDS: PROTONIX 40 MG PO (08:30)
[2024-01-07] MEDS: LIPITOR 20 MG PO (08:32)
[2024-01-07] MEDS: SENOKOT-S 1 TABLET PO ×2 (08:32→19:56)
[2024-01-07] MEDS: NEURONTIN 100 MG PO ×3 (08:32→22:00)
[2024-01-07] MEDS: LAMICTAL 150 MG PO (08:32)
[2024-01-07] MEDS: BACTROBAN 2% OINTMENT 1 APPLIC NASAL ×2 (08:33→19:57)
[2024-01-07] MEDS: VANCOCIN 200 IV (08:33)
[2024-01-07] MEDS: NSS IV (08:34)
[2024-01-07] MEDS: LR 500 IV (08:39)
--- NOTE | 2024-01-07 08:55 | W.PN.CARDCBS ---
Addendum entered and electronically signed by Dar Mendez MD 01/07/24 10:12:
I saw and examined the patient.
The Textile Machinery Sales Representative's note was reviewed and I agree with the note.
Comment:
GEN: No distress, awake, Ox3
HEENT: supple, anicteric, mmm
LUNGS: CTA, no wheezes/rales
CV: Reg, S1/S2, no rub
ABD: soft, BS+, NT/ND
EXT: No edema
NEURO: Gross non-focal
SKIN: sternotomy
PLan:
Overall feels well and denies chest pains. EKG with pericarditis findings.
Remains in sinus rhythm. Could consider colchicine if has chest pains.
Continue Toprol and amiodarone.
Original Note:
Today's Communication / Plan
-
continue post op care
follow EKG
follow BP/HR
Impression / Plan
-
PCP:Tiffany Horn
Cardiology: Dr. Navya Aguirre
Impression:
Presented for elective repair of Ascending thoracic aortic aneurysm
S/p #32 hemiarch ascending replacement with resuspension of the AV and Rigid sternal fixation using 3 plates and sternal wires on 01/06/2024 Dr. Box
Bicuspid AV w/ mild
Tobacco abuse/smoker, 30+years, < 1PPD
Mechanical fall off ladder, nondisplaced rib fractures and traumatic fx L femur requiring ORIF
Hyperlipidemia
Chronic low back pain, sciatica
Nephrolithiasis�����
Depression/anxiety
Echo 11/29/2023 ([facility]): EF 55% with normal regional wall motion. Mildly dilated RA, mild peak/mean 18/10 mmHg
Cardiac catheterization 12/04/2023 ([facility]): No significant coronary artery disease
Carotid duplex 11/29/2023: No significant hemodynamic stenosis
Plan:
-S/p #32 hemiarch ascending replacement with resuspension of the AV and Rigid sternal fixation using 3 plates and sternal wires on 01/06/2024
-c/o mild dizziness this morning
-BP/HR on low side. off pressors. holding BB/amio at present
-hgb 12.9.
-with evidence of pericarditis by post op EKGs. receiving toradol. patient reports pain well controlled
-prior to admission was on toprol 25mg daily
-encouraged IS. continue post op care
-OP follow up with [facility] cardiology
-d/w nursing
HPI 01/06/2024:
Patient is a 63-year-old male with past medical history of ascending aortic aneurysm measuring 5.3 cm and bicuspid aortic valve, hyperlipidemia, chronic back pain, kidney stones, tobacco abuse who had been admitted to outside hospital on multiple
occasions with unexplained chest and back pain. Multiple CT angiograms demonstrated stable ascending aortic aneurysm without dissection.. Echocardiogram showed preserved ejection fraction with bicuspid aortic valve with mild aortic stenosis. He
underwent cardiac catheterization in November 2023 which demonstrated no significant coronary artery disease He was seen by cardiothoracic surgery as outpatient and felt to be suitable candidate for ascending aorta replacement with resuspension of
aortic valve. Patient was electively admitted 01/06/2024 and underwent number #32 hemiarch ascending aorta replacement with resuspension of aortic valve and rigid sternal fixation using 3 plates and sternal wires by Dr. Box. Cardiology being asked
to see patient for postop care.
Progress Note - Cigar Wrapper
Subjective
Date of Service: January 07, 2024
Reports pain well-controlled. Reports mild dizziness
Objective
Labs:
01/07/24 03:24
01/07/24 03:24
Labs
Hgb 12.9 g/dL (13.0-18.0) L 01/07/24 03:24
Hct 38.4 % (39.0-52.0) L 01/07/24 03:24
Plt Count 173 10^3/uL (130-400) 01/07/24 03:24
PT 17.0 Sec (11.4-14.6) H 01/06/24 12:02
INR 1.38 01/06/24 12:02
APTT 30.0 Sec (23.4-35.0) 01/06/24 12:02
Sodium 141 mmol/L (135-145) 01/07/24 03:24
Potassium 4.3 mmol/L (3.5-5.1) 01/07/24 03:24
BUN 28 mg/dl (9-20) H 01/07/24 03:24
Creatinine 1.1 mg/dL (0.7-1.3) 01/07/24 03:24
Glucose 99 mg/dl (70-99) 01/07/24 03:24
Vital Signs and I&O:
Vital Signs
Temp Pulse Resp BP Pulse Ox
98.2 F 63 16 90/53 94
01/07/24 06:00 01/07/24 08:25 01/07/24 06:00 01/07/24 08:23 01/07/24 06:00
Vital Signs
Temp Pulse Resp BP Pulse Ox
98.2 F 63 16 90/53 94
01/07/24 06:00 01/07/24 08:25 01/07/24 06:00 01/07/24 08:23 01/07/24 06:00
Intake & Output
01/05/24 01/06/24 01/07/24 01/08/24
07:59 07:59 07:59 07:59
Intake Total 1160.8 / 1181.6 20.8 / 20.8
Output Total 2145 / 2175
Balance -984.2 / -993.4 -9.2 / -9.2
Physical Exam
Physical Exam
GEN: No distress, awake, alert, oriented x3. sitting in chair
HEENT: supple, anicteric, mmm, eomi
LUNGS: Diminished BS B/L, no wheezes
CV: Reg and jose de jesus, S1/S2, no murmur
EXT: No cyanosis, clubbing, edema
NEURO: Gross non-focal
SKIN: Warm, pink, dry. No rash. Sternotomy incision c/d/i. CTs in place. temp wire in place
[2024-01-07 10:43] LABS: Glucose - Point of Care 113 mg/dl (70-99)
--- NOTE | 2024-01-07 12:00 | PTCARENOTE ---
d/c R pleural chest tube without issue. napping in bed. will continue to monitor.
--- NOTE | 2024-01-07 13:20 | W.PN.INTV ---
Today's Communication / Plan
Recommendations
Doing well post extubation, off pressors/stable on RA
Transitioned off insulin protocol
Further postop care per team
Encouraged OOB/PT/OT
Transfer initiated to [facility], we will sign off at this time. Please call with questions
Assessment
-
History obtained from the chart as patient is currently intubated and sedated. 63-year-old male with history of 5.3 cm ascending aortic aneurysm, with persistent chest pain, negative workup. Patient is now status post elective repair, hemiarch
ascending replacement with resuspension of aortic valve. We are asked to help from critical care standpoint
Status post repair of ascending thoracic aortic aneurysm, 5.3 cm
Hemiarch ascending replacement with resuspension of aortic valve
Bicuspid aortic valve with mild
Conditions present prior to admission
Hyperlipidemia
Chronic back pain
History of nephrolithiasis
History of fall with left femur fracture, ORIF 1970s ongoing tobacco use, [id number]
Plan/recommendations
At this time, patient appears to be comfortable. Doing well post extubation
Stable on RA
Postoperative chest x-ray with adequate appearing lungs/stable postop changes
Postoperative hemoglobin stable
Postoperative EKG without acute findings, first-degree AV block noted
Moving forward
Continue with weaning per CT surgery protocol
Blood pressure control
Off pressors
Patient moving all 4 extremities
Follow-up blood sugars, insulin protocol
Antibiotic per protocol
Patient with significant smoking history. No prior CT imaging per my review
Patient would qualify and benefit from lung cancer screening
Patient would benefit from smoking cessation. This will be an ongoing discussion
Reviewed with critical care nursing
-----
Critical Care time 31 mins -- The patient is admitted for acute critical illness for the treatment of vital organ failure and/or prevention of further life-threatening conditions. Total care includes time spent in review of history, physical exam,
medications, hemodynamic/ventilator parameters, laboratory data, imaging and discussion with house staff, pharmacy, respiratory therapy, anesthesiologist, and nursing.
Subjective Dataa
Subjective Data
Date of Service:
Date of Service: January 07, 2024
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
Subjective:
Doing well, sitting in chair
Pain noted, controlled
Objective Data
Data Reviewed
Vital Signs / I&O / Oxygen:
Vital Signs
Temp Pulse Resp BP Pulse Ox
98 F 61 16 95/62 97
01/07/24 08:00 01/07/24 11:00 01/07/24 06:00 01/07/24 10:46 01/07/24 11:12
Intake and Output
01/06/24 01/07/24 01/08/24
06:59 06:59 06:59
Intake Total 1160.8 / 1160.8 31.8 / 31.8
Output Total 2145 / 2145 65 / 65
Balance -984.2 / -984.2 -33.2 / -33.2
SaO2 [CPAP/PSV] 98
SaO2 [SIMV] 96
SaO2 97
Nasal Cannula flow liters per 2
minute
Physical Exam
General: Comfortable and Other (NAD)
HEENT: Normocephalic, Anicteric and Moist Mucous Membranes
Cardiovascular: S1-S2 and Regular Rhythm
Respiratory: Clear, Non-Labored Respirations and Chest Tube
GI: Soft, Non Distended and Non Tender
Neurology: Awake, Alert, Oriented, AO x 3, No Motor Deficits and Tremors
Skin: Warm, Dry and Good Color
Labs/Micro/Reports
Lab Data
01/07/24 03:24
01/07/24 03:24
Laboratory Results
01/06/24 01/06/24
13:15 14:47
pH 7.33 L 7.35
pCO2 45 43
pO2 94 113 H
HCO3 23.7 23.7
O2 Delivery Level
[2024-01-07] MEDS: FERRLECIT 110 MG IV (14:07)
--- NOTE | 2024-01-07 18:10 | PTCARENOTE ---
medicated for sternal pain 11/07. see aug.
--- NOTE | 2024-01-07 20:00 | PTCARENOTE ---
assumed care of patient @ 1900. recieved pt laying in bed, AOX3. VSS on RA. SR/SB on tele. V wire set to 40,8,2. Lungs clear, diminished on room air. 2 mediastinal chest tubes to wall suction no air leak, tidaling or crepitus noted. belly
hypoactive, tolerating diet . voiding spontaneously clear yellow urine. CT dressing CDI, sternal with half aquacel half CONSTRUCTION TRADES TEACHER with glue. R IJ cordis and L AC PIV patent . pt resting comfortably with call gutierrez within reach .
[2024-01-08] VITALS (13 sets, daily range): BP systolic 116–137; BP diastolic 61–79; PULSE 76; O2SAT 98–99; BMI 32.4
--- NOTE | 2024-01-08 | PTCARENOTE ---
pt resting in bed comfortably without complaints, no change in assessment
--- NOTE | 2024-01-08 04:00 | PTCARENOTE ---
labs drawn and sent , pt resting comfortably, no change in assessment
[2024-01-08 04:22] LABS: Hematocrit 34.4 % (39.0-52.0); Hemoglobin 11.6 g/dL (13.0-18.0); Mean Corp Hgb Conc. 33.7 g/dL (33.0-37.0); Mean Corpuscular Hgb 32.3 pg (27.0-31.0); Mean Corpuscular Volume 95.8 fL (80.0-94.0); Mean Platelet Volume 10.6 fL (7.4-10.4); Platelet Count 150 10^3/uL (130-400); Red Blood Cell Count 3.59 10^6/uL (4.70-6.10); White Blood Cell Count 17.5 10^3/uL (4.8-10.8)
--- NOTE | 2024-01-08 05:19 | W.PN.CT ---
Today's Communication / Plan
-
Plan:
-No major issues overnight. Hemodynamically and neurologically intact
-Off all drips
-Amiodarone is on hold given postop bradycardia, will resume low dose BB
-Cont. current meds (ASA, Lipitor, Toprol XL)
-D/C temporary PW (will pull)
-Consider d/c of remaining chest tubes: 2meds 95/180
-Maintain cordis another day
-Encourage use of IS
-Cont. to encourage smoking cessation
-OOB into chair/Ambulate
Assessment / Plan
-
Assessment:
-S/P Standard sternotomy with mid arch cannulation using Seldinger technique and right atrial cannulation/Ascending aortic and hemiarch aorta replacement/Resuspension of the [place] aortic valve at the level of the commissures with debridement of
[place] aortic valve Lambl bodies/ Rigid sternal fixation using 3 plates and sternal wires, by Dr. Box on 01/06/24, pod#1
-Ascending Aorta Aneurysm (5.3 cm)
-Bicuspid aortic valve morphology, Seivers type I, left right fusion
-LVEF 60-65% per intraop AMADEO
-Chest pain
-L heart Cath showed negative CAD
-Sinus bradycardia
-HTN
-Hyperlipidemia
-Class 1 obesity (BMI 32.3)
-Bipolar disorder
-Anxiety/Depression
-Active tobacco use (< 1ppd x 30+ years)
-Renal calculi
-Sciatica
-MRSA + (nasal swab from 12/31/23)
-Hx fall from ladder with rib and left femur fx
-S/P ORIF with traction and prolonged casting, 1976
-Acute postop blood loss/Anemia (stable without blood transfusion)
-Acute postop atelectasis
-Acute postop hypovolemia with subsequent hypervolemia
-Acute postop pericarditis (+rub)
Discussed patient care with: Cardiology, Nursing, Respiratory Therapy, Pharmacy and Care Team
Subjective
Procedure
S/P Standard sternotomy with mid arch cannulation using Seldinger technique and right atrial cannulation/Ascending aortic and hemiarch aorta replacement/Resuspension of the [place] aortic valve at the level of the commissures with debridement of
[place] aortic valve Lambl bodies/ Rigid sternal fixation using 3 plates and sternal wires, by Dr. Box on 01/06/24
-
Date of Service: January 08, 2024
Pt c/o mild incisional pain which is relieved by current analgesics, otherwise feels well
Objective Data
-
Lab Results
01/08/24 04:04
PT 17.0 Sec (11.4-14.6) H 01/06/24 12:02
INR 1.38 01/06/24 12:02
APTT 30.0 Sec (23.4-35.0) 01/06/24 12:02
Vital Signs
Vital Signs
Temp Pulse Resp BP Pulse Ox
97.6 F 63 16 131/64 92
01/08/24 04:26 01/08/24 04:26 01/08/24 04:26 01/08/24 04:00 01/08/24 04:26
CT Intake/Output/Weight
01/07/24 01/07/24 01/08/24
06:59 18:59 06:59
Intake Total 336.3 / 1160.8 91.8 / 91.8
Output Total 630 / 2145 325 / 870 545 / 870
Balance -293.7 / -984.2 -233.2 / -778.2 -545 / -778.2
SaO2: 92 (RA)
Physical Exam
-
General: Awake, Oriented and AOx3
Cardiovascular: Regular rate & rhythm, No Murmurs, Rub (acute pericarditis) and No Gallop
Respiratory: Decreased Breath Sounds (at bases, otherwise clear)
Sternum: Stable
Incision: Clean, Dry, Intact and Dressing Intact
Extremities: No Edema
Data Reviewed
-
Lab Results: Results Reviewed
Medications: Active Meds Reviewed
Chest X-Ray: Report Reviewed and Image Reviewed
ECG: Report Reviewed and Image Reviewed
[2024-01-08 05:23] LABS: Blood Urea Nitrogen 39 mg/dl (9-20); Calcium 9.7 mg/dl (8.4-10.2); Carbon Dioxide 25 mmol/L (22-30); Chloride 102 mmol/L (98-107); Estimated Creatinine Clearance 78 ml/min; Glucose 116 mg/dl (70-99); Magnesium 2.2 mg/dl (1.6-2.3); Potassium 4.1 mmol/L (3.5-5.1); Sodium 135 mmol/L (135-145); eGFR > 60.00
[2024-01-08] MEDS: TYLENOL 1000 MG PO ×3 (06:34→22:15)
--- NOTE | 2024-01-08 07:51 | W.PN.UPDATE ---
Update Note
Progress Note Update
1 bipolar epicardial ventricular pacing wire removed without difficulty. Bedrest x 1 hour and vital signs q15min x 1 hour
[2024-01-08] MEDS: LAMICTAL 150 MG PO (08:19)
[2024-01-08] MEDS: LOW STRENGTH ASPIRIN 81 MG PO (08:20)
[2024-01-08] MEDS: VITAMIN C 500 MG PO (08:20)
[2024-01-08] MEDS: TOPROL XL 12.5 MG PO (08:20)
[2024-01-08] MEDS: PROTONIX 40 MG PO (08:20)
[2024-01-08] MEDS: NEURONTIN 100 MG PO ×3 (08:21→22:15)
[2024-01-08] MEDS: LIPITOR 20 MG PO (08:21)
[2024-01-08] MEDS: SENOKOT-S 1 TABLET PO ×2 (08:21→20:02)
[2024-01-08] MEDS: BACTROBAN 2% OINTMENT 1 APPLIC NASAL ×2 (08:22→20:02)
--- NOTE | 2024-01-08 08:32 | PTCARENOTE ---
Rec'd pt this shift awake and alert sitting in chair. Pt placed back to bed. Epicardial wires d/c'd by JOVITA Coulter. Bedrest maintained. VS done q 15min X [address] X 2 d/c'd. Pt NSR on monitor. RA. AM meds given. Pt encouraged to cough and deep
breathe and to use IS. See worklist for VS/I and O and assessments.
--- NOTE | 2024-01-08 09:48 | CM ---
dc plans remain home when medically stable and f/u visit from the CT Transitional care nurse
--- NOTE | 2024-01-08 12:22 | W.PN.CARDCBS ---
Addendum entered and electronically signed by Edy Alatorre MD 01/08/24 13:55:
I saw and examined the patient.
The DIRECTOR TALENT ACQUISITION or PA's note was reviewed and I agree with the note.
Comment: General: Well developed, well nourished in NAD.
Neck: Supple, no JVD, HJR, carotids +2 B/L, no bruits bilaterally.
Heart: Non displaced PMI, RRR, no murmurs, No S3, S4, no rubs.
Lungs: Scattered rhonchi
Sternal dressings noted
Extremities: No clubbing, cyanosis or edema bilaterally.
Neuro: Grossly nonfocal, awake, alert and oriented x3.
Stable cardiology status. Remains in sinus rhythm.
Original Note:
Today's Communication / Plan
-
doing well
continue post op care
Impression / Plan
-
PCP: Dr. Tiffany Horn
Cardiology: Dr. Navya Aguirre
Impression:
Presented for elective repair of Ascending thoracic aortic aneurysm
S/p #32 hemiarch ascending replacement with resuspension of the AV and Rigid sternal fixation using 3 plates and sternal wires on 01/06/2024 Dr. Box
Bicuspid AV w/ mild
Tobacco abuse/smoker, 30+years, < 1PPD
Mechanical fall off ladder, nondisplaced rib fractures and traumatic fx L femur requiring ORIF
Hyperlipidemia
Chronic low back pain, sciatica
Nephrolithiasis�����
Depression/anxiety
Echo 11/29/2023 ([facility]): EF 55% with normal regional wall motion. Mildly dilated RA, mild peak/mean 18/10 mmHg
Cardiac catheterization 12/04/2023 ([facility]): No significant coronary artery disease
Carotid duplex 11/29/2023: No significant hemodynamic stenosis
Plan:
-S/p #32 hemiarch ascending replacement with resuspension of the AV and Rigid sternal fixation using 3 plates and sternal wires on 01/06/2024
-doing very well
-in SR on review of tele. holding amio given relative bradycardia. on lopressor
-hgb 11.6
-with evidence of pericarditis by post op EKG 01/06. s/p toradol. denies pain
-prior to admission was on toprol 25mg daily
-encouraged IS. continue post op care
-OP follow up with [facility] cardiology
-d/w nursing
HPI 01/06/2024:
Patient is a 63-year-old male with past medical history of ascending aortic aneurysm measuring 5.3 cm and bicuspid aortic valve, hyperlipidemia, chronic back pain, kidney stones, tobacco abuse who had been admitted to outside hospital on multiple
occasions with unexplained chest and back pain. Multiple CT angiograms demonstrated stable ascending aortic aneurysm without dissection.. Echocardiogram showed preserved ejection fraction with bicuspid aortic valve with mild aortic stenosis. He
underwent cardiac catheterization in November 2023 which demonstrated no significant coronary artery disease He was seen by cardiothoracic surgery as outpatient and felt to be suitable candidate for ascending aorta replacement with resuspension of
aortic valve. Patient was electively admitted 01/06/2024 and underwent number #32 hemiarch ascending aorta replacement with resuspension of aortic valve and rigid sternal fixation using 3 plates and sternal wires by Dr. Box. Cardiology being asked
to see patient for postop care.
Progress Note - Deck Builder
Subjective
Date of Service: January 08, 2024
denies pain. reports breathing improved s/p CT removal
Objective
Labs:
01/08/24 04:04
01/08/24 04:04
Labs
Hgb 11.6 g/dL (13.0-18.0) L 01/08/24 04:04
Hct 34.4 % (39.0-52.0) L 01/08/24 04:04
Plt Count 150 10^3/uL (130-400) 01/08/24 04:04
PT 17.0 Sec (11.4-14.6) H 01/06/24 12:02
INR 1.38 01/06/24 12:02
APTT 30.0 Sec (23.4-35.0) 01/06/24 12:02
Sodium 135 mmol/L (135-145) 01/08/24 04:04
Potassium 4.1 mmol/L (3.5-5.1) 01/08/24 04:04
BUN 39 mg/dl (9-20) H 01/08/24 04:04
Creatinine 1.2 mg/dL (0.7-1.3) 01/08/24 04:04
Glucose 116 mg/dl (70-99) H 01/08/24 04:04
Vital Signs and I&O:
Vital Signs
Temp Pulse Resp BP Pulse Ox
97.9 F 74 18 121/75 97
01/08/24 08:49 01/08/24 12:00 01/08/24 08:00 01/08/24 11:52 01/08/24 09:00
Vital Signs
Temp Pulse Resp BP Pulse Ox
97.9 F 74 18 121/75 97
01/08/24 08:49 01/08/24 12:00 01/08/24 08:00 01/08/24 11:52 01/08/24 09:00
Intake & Output
01/06/24 01/07/24 01/08/24 01/09/24
07:59 07:59 07:59 07:59
Intake Total 1160.8 / 1181.6 91.8 / 91.8 1000 / 1000
Output Total 2145 / 2175 870 / 870
Balance -984.2 / -993.4 -778.2 / -778.2 1000 / 1000
Physical Exam
Physical Exam
GEN: No distress, awake, alert, oriented x3. sitting in chair
HEENT: supple, anicteric, mmm, eomi
LUNGS: CTA B/L, no wheezes
CV: Reg and jose de jesus, S1/S2, 07/06 syst LSB
EXT: No cyanosis, clubbing, edema
NEURO: Gross non-focal
SKIN: Warm, pink, dry. No rash. Sternotomy incision c/d/i.
[2024-01-08] MEDS: FERRLECIT 110 MG IV (13:56)
[2024-01-08] MEDS: NSS 500 IV (13:56)
--- NOTE | 2024-01-08 14:41 | PTCARENOTE ---
Pt ambulating in room and in hallway, tolerated well. pt denies pain, denies sob. See worklist for VS/I and O and assessments.
[2024-01-08] MEDS: PACERONE 200 MG PO ×2 (16:25→22:15)
--- NOTE | 2024-01-08 20:00 | PTCARENOTE ---
Received pt from dayshift; pt resting comfortably in bed; pt is ambulating with stand by assist; pt is AAOx4, denies pain; NSR on monitor; VSS; heart sounds audible, radial and DP pulses palpable, no edema noted; lungs clear, diminished at bases;
+bs x4 quadrants, abdomen soft non tender; pt voiding clear yellow urine; surgical sites maintained; PIV and right IJ cordis maintained; plan is for d/c tomorrow; call gutierrez within reach; will continue to monitor.
--- NOTE | 2024-01-09 | PTCARENOTE ---
Pt assessment unchanged; pt resting comfortably in bed; NSR on monitor, VSS; call gutierrez within reach; will continue to monitor.
[2024-01-09 00:06] VITALS: BP 118/58
--- NOTE | 2024-01-09 04:00 | PTCARENOTE ---
Pt assessment unchanged; VSS, NSR on monitor; labs drawn; pt resting comfortably; call gutierrez within reach; will continue to monitor.
[2024-01-09 04:06] VITALS: BP 134/73
[2024-01-09 04:24] LABS: Hematocrit 31.9 % (39.0-52.0); Hemoglobin 10.8 g/dL (13.0-18.0); Mean Corp Hgb Conc. 33.9 g/dL (33.0-37.0); Mean Corpuscular Hgb 32.3 pg (27.0-31.0); Mean Corpuscular Volume 95.5 fL (80.0-94.0); Mean Platelet Volume 10.3 fL (7.4-10.4); Platelet Count 141 10^3/uL (130-400); Red Blood Cell Count 3.34 10^6/uL (4.70-6.10); Red Cell Dist. Width 12.9 % (11.5-14.5); White Blood Cell Count 12.2 10^3/uL (4.8-10.8)
[2024-01-09 04:46] LABS: Blood Urea Nitrogen 24 mg/dl (9-20); Calcium 9.3 mg/dl (8.4-10.2); Carbon Dioxide 30 mmol/L (22-30); Chloride 103 mmol/L (98-107); Estimated Creatinine Clearance 87 ml/min; Glucose 92 mg/dl (70-99); Magnesium 2.1 mg/dl (1.6-2.3); Potassium 4.1 mmol/L (3.5-5.1); Sodium 136 mmol/L (135-145); eGFR > 60.00
--- NOTE | 2024-01-09 05:57 | W.PN.CT ---
Today's Communication / Plan
-
-pod #3
-no issues overnight, denies pain, has no complaints, asks about going home
-follow-up Echo today (ordered)
-pw and CT are out 01/07
-weaned off O2 - pOx 92-95% on RA
-ambulate today
-possible d/c soon
Assessment / Plan
-
Assessment:
-S/P Standard sternotomy with mid arch cannulation using Seldinger technique and right atrial cannulation/Ascending aortic and hemiarch aorta replacement/Resuspension of the lime aortic valve at the level of the commissures with debridement of
lime aortic valve Lambl bodies/ Rigid sternal fixation using 3 plates and sternal wires, by Dr. Box on 01/06/24, pod#3
-Ascending Aorta Aneurysm (5.3 cm)
-Bicuspid aortic valve morphology, Seivers type I, left right fusion
-LVEF 60-65% per intraop AMADEO
-Chest pain
-L heart Cath showed negative CAD
-Sinus bradycardia
-HTN
-Hyperlipidemia
-Class 1 obesity (BMI 32.3)
-Bipolar disorder
-Anxiety/Depression
-Active tobacco use (< 1ppd x 30+ years)
-Renal calculi
-Sciatica
-MRSA + (nasal swab from 12/31/23)
-Hx fall from ladder with rib and left femur fx
-S/P ORIF with traction and prolonged casting1976
-Acute postop blood loss/Anemia (stable without blood transfusion)
-Acute postop atelectasis
-Acute postop hypovolemia with subsequent hypervolemia
-Acute postop pericarditis (+rub)
Discussed patient care with: Nursing and Care Team
Subjective
Procedure
S/P Standard sternotomy with mid arch cannulation using Seldinger technique and right atrial cannulation/Ascending aortic and hemiarch aorta replacement/Resuspension of the lime aortic valve at the level of the commissures with debridement of
lime aortic valve Lambl bodies/ Rigid sternal fixation using 3 plates and sternal wires, by Dr. Box on 01/06/24
-
Date of Service: January 09, 2024
Objective Data
-
Lab Results
01/09/24 04:10
01/09/24 04:10
PT 17.0 Sec (11.4-14.6) H 01/06/24 12:02
INR 1.38 01/06/24 12:02
APTT 30.0 Sec (23.4-35.0) 01/06/24 12:02
Vital Signs
Vital Signs
Temp Pulse Resp BP Pulse Ox
98.9 F 67 18 134/73 92
01/09/24 04:00 01/09/24 04:30 01/08/24 16:04 01/09/24 04:06 01/09/24 04:30
CT Intake/Output/Weight
01/08/24 01/08/24 01/09/24
06:59 18:59 06:59
Intake Total 1120 / 1120
Output Total 545 / 870 400 / 400
Balance -545 / -778.2 1120 / 720 -400 / 720
SaO2: 92
Physical Exam
-
General: Awake, Oriented and AOx3
Cardiovascular: Regular rate & rhythm, No Murmurs, Rub (acute pericarditis) and No Gallop
Respiratory: Decreased Breath Sounds (at bases, otherwise clear)
Sternum: Stable
Incision: Clean, Dry, Intact and Dressing Intact
Extremities: No Edema
Data Reviewed
-
Lab Results: Results Reviewed
Medications: Active Meds Reviewed
Chest X-Ray: Report Reviewed and Image Reviewed
ECG: Report Reviewed and Image Reviewed
[2024-01-09 06:19] VITALS: BMI 31.9
[2024-01-09] MEDS: TYLENOL 1000 MG PO (06:19)
[2024-01-09 07:36] VITALS: BP 111/70
--- NOTE | 2024-01-09 08:18 | PTCARENOTE ---
Patient received from overnight associate resting oob in chair, ambulating ad trudi, denies pain. NSR via cm, SaO2 @ 95% on RA. RIJ Cordis present. All procedural sites stable. Dr. Box and team to bedside, patient updated to plan of care for the day
including d/c home, in agreement. See work list for full assessment and interventions performed.
[2024-01-09] MEDS: BACTROBAN 2% OINTMENT 1 APPLIC NASAL (08:42)
[2024-01-09] MEDS: LIPITOR 20 MG PO (08:43)
[2024-01-09] MEDS: TOPROL XL 12.5 MG PO (08:43)
[2024-01-09] MEDS: LAMICTAL 150 MG PO (08:43)
[2024-01-09] MEDS: LASIX 40 MG PO (08:43)
[2024-01-09] MEDS: PROTONIX 40 MG PO (08:43)
[2024-01-09] MEDS: PACERONE 200 MG PO (08:43)
[2024-01-09] MEDS: SENOKOT-S 1 TABLET PO (08:44)
[2024-01-09] MEDS: NEURONTIN 100 MG PO (08:44)
[2024-01-09] MEDS: VITAMIN C 500 MG PO (08:44)
[2024-01-09] MEDS: LOW STRENGTH ASPIRIN 81 MG PO (08:44)
--- NOTE | 2024-01-09 09:31 | W.DCSUMMARY ---
Discharge Summary
Discharge Data
Date of Admission: 01/06/24
Date of Discharge: 01/09/24
Total time spent discharging patient (in min): 35
-
Pending Results: No
Hospital Course
Primary care physician:
Dr Tiffany horn
Outpatient slab miller operator:
Dr. Navya aguirre
Inpatient consultants:
DCA, auto slip cover installer
Procedures:
1. Ascending aortic and hemiarch aorta replacement
2. Resuspension of the yurok aortic valve at the level of the commissures with debridement of yurok aortic valve Lambl bodies
Primary Diagnosis:
1. Ascending aortic aneurysm with history of bicuspid aortic valve morphology and recurrent chest pain
Secondary Diagnoses:
1. Hypertension
2. Hyperlipidemia
3. History of bipolar disorder, depression and anxiety
4. Active smoker, tobacco abuse
5. Nephrolithiasis
6. Bicuspid aortic valve morphology, Seivers type I, left right fusion
HPI: 63-year-old male with a known ascending aortic aneurysm measuring 5.3 cm. He also has known bicuspid aortic valve morphology was seen in the office by Dr. Box. He presented electively on 01/05 for a ascending aortic root replacement.
Hospital course: Patient was electively admitted on 01/05. Post-procedure he returned to the CVICU on levophed, precedex, and insulin infusions. He was weaned off precedex and was extubated at 1515. On 01/06 POD #1, levophed was weaned off and
patient's arterial line, osei, and SGC was removed. Patient's HR was SB in the 50s, therefore, amio and beta-blockers were held. Patient was treated with toradol for pericarditis and was given an LR bolus for hypotension. Right pleural chest tube
was discontinued. On 01/07 POD #2, patient's remaining chest tubes were removed. Wires were pulled. BB and amiodorone resumed. On 03/11, POD #3 patient got a repeat CTA of the chest which was stable. He was deemed stable for discharge. His
prescriptions were sent to his preferred pharmacy.
Home medication changes:
see below
Discharge Plan
-
Patient Disposition: Home (Routine Discharge)
Discharge Diagnosis/Procedures: ascending Aortic root replacement
Condition: Good
Diet: Low Cholesterol and Low Sodium
Activity: No strenuous activity
Driving Restrictions: Not until seen by your Dr
Bathing Restrictions: OK to Shower
Other Services: Cardiac Rehab
Specialty Instructions: Weigh Daily- Call MD for wt gain/loss 3 lbs overnight/5 lbs in 1 week
Activity Restrictions/Additional Instructions:
ACTIVITY:
-No strenuous activity: no heavy lifting, pushing, pulling anything over 15 pounds for one month
-continue to use stairs as tolerated
DRIVING RESTRICTIONS:
-No driving for one month or until approved by your surgeon
WOUND CARE:
-Shower daily. Use soap & water.
-No lotions, creams or powders on incision area.
DIET:
-continue a low fat/low cholesterol diet.
-IF you are diabetic, continue carb controlled diet.
CARDIAC REHAB:
-Please make appointment to start in 5-6 weeks with your local hospital program. (See Cardiac Rehabilitation Discharge Booklet).
SPECIALTY INSTRUCTIONS:
-Weigh yourself daily. Call your physician for any weight gain/loss of 3 lbs overnight or 5 lbs in one week.
-REPORT any clicking noise or uneven appearance of your sternum to your surgeon immediately.
-If you smoke, you are instructed to quit. The [place] smoking hotline phone number is [phone]
Referrals:
CT Transitional Care Nurse [Outside] (The Cardiothoracic Transitional Care Nurse will call you to set up a visit in 1-2 days.)
Navya Aguirre MD [Non-Admitting Privileges] - 02/18/24 1:30 pm
Tiffany Horn DO [Family Provider] -
Barber Box MD [Active] - 02/06/24 1:45 pm
Additional Discharge Medication Instructions: please follow your medication list. Your dose of metoprolol has changed, Do not increase it unless your directed to by a doctor.
Prescriptions:
New
aspirin 81 mg Tablet,Chewable
81 mg PO DAILY Qty: 60 0RF
gabapentin 100 mg Capsule
100 mg PO TID Qty: 30 0RF
metoprolol succinate 25 mg Tablet Extended Release 24 Hr
12.5 mg PO DAILY Qty: 60 1RF
Continued
atorvastatin 20 mg Tablet
20 mg PO DAILY
acetaminophen 500 mg Capsule
500 - 1,000 mg PO Q6H PRN (Reason: pain)
lamotrigine 150 mg Tablet
150 mg PO DAILY Qty: 0 0RF
Multivitamin 50 Plus Tablet
1 tab PO DAILY Qty: 0 0RF
Discontinued
metoprolol succinate 25 mg Tablet Extended Release 24 Hr
25 mg PO DAILY
Discharge Orders:
Discharge Patient (As Directed); Ordered 01/09/24
Ordered By: Kamla Avendano
Care Plan Goals
Care Plan Goals:
Problem: Readiness for enhanced knowledge related to diagnosis and treatment plan
Goal: Understand your diagnosis and treatment plan needs, including medications if applicable.
Instructions: Know your diagnosis, underlying causes and treatment plan options, including medications if applicable. Consult with your health care team to learn about your diagnosis and treatment plan, including medications if applicable.
Discharge Date and Time
Print Language: TAJIK
[2024-01-09] MEDS: NSS IV (10:08)
[2024-01-09 10:12] VITALS: BP 121/74
[2024-01-09 10:28] VITALS: BP 103/85
[2024-01-09 10:32] VITALS: BP 103/85; BP 121/74; PULSE 69; O2SAT 95; O2SAT 97
--- NOTE | 2024-01-09 11:07 | W.PN.CARDCBS ---
Addendum entered and electronically signed by Dar Mendez MD 01/09/24 11:32:
I saw and examined the patient.
The [employer]house Transplanter's note was reviewed and I agree with the note.
Comment:
GEN: No distress, awake, Ox3
HEENT: supple, anicteric, mmm
LUNGS: CTA, no wheezes/rales
CV: Reg, S1/S2, no murmur
ABD: soft, BS+, NT/ND
EXT: No edema
NEURO: Gross non-focal
SKIN: sternotomy
Plan:
Doing well status post ascending aortic aneurysm repair and resuspension of aortic valve.
Continue aspirin, metoprolol, and Lipitor.
Okay for discharge.
Original Note:
Today's Communication / Plan
-
for DC today
continue asa, toprol 12.5mg daily, lipitor
cardiac rehab
OP cardiac follow up with [facility]
Impression / Plan
-
PCP: Dr. Tiffany Horn
Cardiology: Dr. Navya Aguirre
Impression:
Presented for elective repair of Ascending thoracic aortic aneurysm
S/p #32 hemiarch ascending replacement with resuspension of the AV and Rigid sternal fixation using 3 plates and sternal wires on 01/06/2024 Dr. Box
Bicuspid AV w/ mild
Tobacco abuse/smoker, 30+years, < 1PPD
Mechanical fall off ladder, nondisplaced rib fractures and traumatic fx L femur requiring ORIF
Hyperlipidemia
Chronic low back pain, sciatica
Nephrolithiasis�����
Depression/anxiety
Echo 11/29/2023 ([facility]): EF 55% with normal regional wall motion. Mildly dilated RA, mild peak/mean 18/10 mmHg
Cardiac catheterization 12/04/2023 ([facility]): No significant coronary artery disease
Carotid duplex 11/29/2023: No significant hemodynamic stenosis
Plan:
-S/p #32 hemiarch ascending replacement with resuspension of the AV and Rigid sternal fixation using 3 plates and sternal wires on 01/06/2024
-remains in SR.
-plan for DC on asa, toprol 12.5mg daily, lipitor
-cardiac rehab
-OP follow up with [facility] cardiology
-for DC today
-d/w nursing
HPI 01/06/2024:
Patient is a 63-year-old male with past medical history of ascending aortic aneurysm measuring 5.3 cm and bicuspid aortic valve, hyperlipidemia, chronic back pain, kidney stones, tobacco abuse who had been admitted to outside hospital on multiple
occasions with unexplained chest and back pain. Multiple CT angiograms demonstrated stable ascending aortic aneurysm without dissection.. Echocardiogram showed preserved ejection fraction with bicuspid aortic valve with mild aortic stenosis. He
underwent cardiac catheterization in November 2023 which demonstrated no significant coronary artery disease He was seen by cardiothoracic surgery as outpatient and felt to be suitable candidate for ascending aorta replacement with resuspension of
aortic valve. Patient was electively admitted 01/06/2024 and underwent number #32 hemiarch ascending aorta replacement with resuspension of aortic valve and rigid sternal fixation using 3 plates and sternal wires by Dr. Box. Cardiology being asked
to see patient for postop care.
Progress Note - B2B Sales Professional
Subjective
Date of Service: January 09, 2024
for DC today
Objective
Labs:
01/09/24 04:10
01/09/24 04:10
Labs
Hgb 10.8 g/dL (13.0-18.0) L 01/09/24 04:10
Hct 31.9 % (39.0-52.0) L 01/09/24 04:10
Plt Count 141 10^3/uL (130-400) 01/09/24 04:10
PT 17.0 Sec (11.4-14.6) H 01/06/24 12:02
INR 1.38 01/06/24 12:02
APTT 30.0 Sec (23.4-35.0) 01/06/24 12:02
Sodium 136 mmol/L (135-145) 01/09/24 04:10
Potassium 4.1 mmol/L (3.5-5.1) 01/09/24 04:10
BUN 24 mg/dl (9-20) H 01/09/24 04:10
Creatinine 1.1 mg/dL (0.7-1.3) 01/09/24 04:10
Glucose 92 mg/dl (70-99) 01/09/24 04:10
Vital Signs and I&O:
Vital Signs
Temp Pulse Resp BP Pulse Ox
99 F 74 17 103/85 95
01/09/24 07:48 01/09/24 10:30 01/09/24 07:48 01/09/24 10:28 01/09/24 08:15
Vital Signs
Temp Pulse Resp BP Pulse Ox
99 F 74 17 103/85 95
01/09/24 07:48 01/09/24 10:30 01/09/24 07:48 01/09/24 10:28 01/09/24 08:15
Intake & Output
01/07/24 01/08/24 01/09/24 01/10/24
07:59 07:59 07:59 07:59
Intake Total 1160.8 / 1181.6 91.8 / 91.8 1120 / 1120 250 / 250
Output Total 2145 / 2175 870 / 870 600 / 600
Balance -984.2 / -993.4 -778.2 / -778.2 520 / 520 250 / 250
Physical Exam
Physical Exam
GEN: No distress, awake, alert, oriented x3. sitting in chair
HEENT: supple, anicteric, mmm, eomi
LUNGS: no audible wheezes
CV: SR on telel
--- NOTE | 2024-01-09 11:30 | PTCARENOTE ---
Patient set up for shower, completed independently. Patient assisted to execute a full set of stairs w/o difficulty. PIV removed. Discharge instructions thoroughly reviewed w/patient and spouse, all questions answered. Patient and all belongings
transported to waiting vehicle for d/c home.
== END 2024-01-09 11:32 | disposition home or self-care (01) | DRG 220 ==
LOC: CVICU 04:48
PROVIDERS: Anesthesiology; Nurse Practitioner; ADMITTING PHYSICIAN Thoracic Surgery (Cardiothoracic Vascular Surgery); CONSULT PHYSICIAN Internal Medicine Cardiovascular Disease; CONSULT PHYSICIAN Internal Medicine Critical Care Medicine; FAMILY PHYSICIAN Family Medicine
PROC: 02RX0JZ Replacement of Thoracic Aorta, Ascending/Arch with Synthetic Substitute, Open Approach (ICD-10-PCS; 2024-01-06)
PROC: 02QF0ZZ Repair Aortic Valve, Open Approach (ICD-10-PCS; 2024-01-06)
PROC: B24BZZ4 Ultrasonography of Heart with Aorta, Transesophageal (ICD-10-PCS; 2024-01-06)
PROC: 5A1221Z Performance of Cardiac Output, Continuous (ICD-10-PCS; 2024-01-06)
DX: I71.21 Aneurysm of the ascending aorta, without rupture (principal); D62 Acute posthemorrhagic anemia; Q23.1 Congenital insufficiency of aortic valve; I30.9 Acute pericarditis, unspecified; J98.11 Atelectasis; I10 Essential (primary) hypertension; E78.5 Hyperlipidemia, unspecified; F31.9 Bipolar disorder, unspecified; F41.9 Anxiety disorder, unspecified; F17.210 Nicotine dependence, cigarettes, uncomplicated; N20.0 Calculus of kidney; G89.29 Other chronic pain; M54.50 Low back pain, unspecified; R00.1 Bradycardia, unspecified; E66.09 Other obesity due to excess calories; E86.1 Hypovolemia; E87.70 Fluid overload, unspecified; Z22.322 Carrier or suspected carrier of Methicillin resistant Staphylococcus aureus; Z68.32 Body mass index [BMI] 32.0-32.9, adult; Z79.899 Other long term (current) drug therapy
CPT/HCPCS: 88304; 36415; 71045; 71275; 80048; 80053; 81003; 82248; 82330; 82565; 82805; 82810; 82947; 82962; 83036; 83735; 84132; 84302; 84520; 85014; 85018; 85025; 85027; 85049; 85610; 85730; 86850; 86900; 86901; 86920; 87070; 87147; 93005; 93312; 93320; 93325; 94002; 94010; 99406; J2916; P9045; Q9967